=== PATIENT | female | born 2000 | race African-American/Black ===

== ENCOUNTER 2022-11-11 11:12 | Emergency (ER) | payer SELFPAY ==
[~2022-11-11] VITALS: Ht 162.6 cm; Wt 61.4 kg
[2022-11-11] MEDS ORDERED: VALA1TAB5 PO (15:07)
[2022-11-11 15:18] VITALS: BP 126/70
== END 2022-11-11 15:24 | disposition home or self-care (01) ==
LOC: M ED 14:51
DX: T20.12XA Burn of first degree of lip(s), initial encounter (principal); B00.9 Herpesviral infection, unspecified; F17.200 Nicotine dependence, unspecified, uncomplicated; Z79.899 Other long term (current) drug therapy; T31.0 Burns involving less than 10% of body surface